=== PATIENT | female | born 1995 | race Caucasian/White ===

== ENCOUNTER 2017-09-12 09:29 | Emergency (ER) | payer OTHER ==
[2017-09-12 09:47] VITALS: BP 129/80; PULSE 90; TEMP 98.2; BMI 30.1
--- NOTE | 2017-09-12 10:35 | PDOC ---
History of Present Illness - General Chief Complaint: Pain, Acute Stated Complaint: BACK PAIN Time Seen by Provider: 09/12/17 09:51 - History of Present Illness Initial Comments: Alessia Acosta is an otherwise healthy 22yo, recent 6 weeks ago, who presents with right sided back and shooting leg pain since yesterday. She reports that last yesterday morning she began to have an aching pain on her right back, initially a 2/10. The pain worsened throughout the day until it was a 10/10, sharp pain that radiated down the right leg with movement. At rest it is a 3/10 but continues to be severe with any movement. Her pain is the worst when twisting, walking, or if she tries to straighten her back completely. It improves when she slouches, particularly if she leans over to the right side. Ms Acosta denies any numbness or tingling in her leg, urinary retention, bowel incontinence, focal weakness, or injury. She has not been doing any unusual lifting and did not notice that her symptoms started during or after any activity. She had similar episodes of shooting pain during her recent , but she says that the previous episodes were brief and resolved on there own. She presented for evaluation due to the duration of the current episode. Past History - Past Medical History Allergies/Adverse Reactions: Allergies Allergy/AdvReac Type Severity Reaction Status Date / Time pineapple Allergy Severe Bleeding Verified 07/29/17 07:18 gums No Known Drug Allergies Allergy Verified 07/29/17 07:18 Home Medications: Ambulatory Orders Ibuprofen [Motrin -] 600 mg PO QID PRN #28 tablet 08/01/17 Asthma: No Cancer: No Cardiac Disorders: No COPD: No Diabetes: No HTN: No Seizures: No Thyroid Disease: No - Suicide/Smoking/Psychosocial Hx Smoking History: Never smoked Have you smoked in the past 12 months: No Hx Alcohol Use: No Drug/Substance Use Hx: No Hx Substance Use Treatment: No Review of Systems - Review of Systems Comments:: General: No fevers, no chills, no weight or appetite change, no malaise HEENT: No changes in vision, no changes in hearing, no congestion, no sore throat CV: No chest pain, no palpitations, no LE edema Pulm: No SOB, no cough, no wheezing GI: No nausea or vomiting, no change in bowel habits, no melena : No frequency, no urgency, no dysuria Musc: No joint swelling, no recent injury. See HPI Skin: No rash, no lesions, no erythema Endo: No excessive thirst, no heat/cold intolerance Heme: No unusual bruising or bleeding, no swollen glands Neuro: No syncope, no numbness/tingling, no focal weakness Vasc: No claudication Psych: No recent change in mood, no SI or HI *Physical Exam - Vital Signs Last Vital Signs Temp Pulse Resp BP Pulse Ox 98.2 F 90 16 129/80 99 09/12/17 09:35 09/12/17 09:35 09/12/17 09:35 09/12/17 09:35 09/12/17 09:35 - Physical Exam Comments: General: Comfortable, no acute distress HEENT: PERRL, EOMI, MMM, voice normal, normal neck ROM, no LAD Cards: RRR, no murmur appreciated Pulm: Comfortable on room air, clear to auscultation bilaterally Abd/back: Soft, nontender, nondistended. Back and flanks nontender to palpation ; no spinal tenderness. Able to twist, flex, extend at waist. : No CVA tenderness Ext: Atraumatic. No LE edema. ROM intact. Able to move all extremities. Strength 5/5 and equal bilaterally Vasc: Extremities WWP. Palpable radial and pedal pulses bilaterally Neuro: A&Ox3, CN grossly intact, normal speech, motor/sensory grossly intact and symmetric Psych: Mood appropriate to situation Medical Decision Making - Medical Decision Making Alessia Acosta is a 22yo woman s/p recent (6 weeks ago) who presents with right sided positional back pain associated with shooting pain down her right leg. She denies any associated symptoms. - Consistent with musculosceletal pain, most likely sciatica, as symptoms occur or resolve with position and worsen with movement - No neurological symptoms suggesting any spinal cord compression or injury - No urinary symptoms or CVA tenderness suggesting UTI or kidney stone, but UA ordered in triage - currently pending - Recent , currently menstruating, no sudden onset of pain, abdominal pain or tenderness, or unusual menstrual cramping that would suggest gynecologic pathology. Urine ordered in triage, pending. 09/12/17 11:40 - UA without UTI. Some blood, but low concern for kidney stone given history and lack of CVA tenderness. - test negative - Discussed with Ms Acosta that this is most likely sciatica. Plan to discharge with ortho follow up. Ms Acosta agrees. Also discussed warning signs and reasons to return to the hospital. Discussed with Dr Lang. *DC/Admit/Observation/Transfer Diagnosis at time of Disposition: Sciatica Qualifiers: Laterality: right Qualified Code(s): M54.31 - Sciatica, right side - Discharge Dispostion Disposition: HOME Condition at time of disposition: Good - Referrals Referrals: Arnol Trinidad [Primary Care Provider] - Dax Hinkle MD [Staff Physician] - - Patient Instructions Printed Discharge Instructions: DI for Sciatica, DI for Back Pain With Sciatica - Post Discharge Activity
[2017-09-12 10:38] LABS: HCG,QUALITATIVE URINE NEGATIVE
[2017-09-12 10:41] LABS: URINE APPEARANCE CLEAR; URINE BILIRUBIN NEGATIVE (<2.0 mg/dL); URINE COLOR LTYELLOW; URINE GLUCOSE (UA) NEGATIVE (NEGATIVE); URINE KETONE NEGATIVE (NEGATIVE); URINE LEUK ESTERASE NEGATIVE (NEGATIVE); URINE NITRITE NEGATIVE (NEGATIVE); URINE UROBILINOGEN NEGATIVE mg/dL (0.2-1.0)
[2017-09-12 11:16] LABS: URINE PROTEIN 1+ (NEGATIVE)
--- NOTE | 2017-09-12 11:29 | PDOC ---
Attending Attestation - Resident Resident Name: Alicia Ward - ED Attending Attestation I have performed the following: I have examined & evaluated the patient, The case was reviewed & discussed with the resident, I agree w/resident's findings & plan, Exceptions are as noted - HPI HPI: 09/12/17 11:26 "The patient is a 22 year old female, with no significant PMH, who presents to the emergency department with 1 day of right sided back pain. The patient denies any recent injuries or trauma. The patient states that yesterday morning she experienced the right sided back ache which worsened throughout the afternoon, described as a constant sharp pain, worsened with twisting and bending. The patient states the right sided back pain radiates down the right leg. The patient states she experiencing similar symptoms while but the pain did not last for as long as today. The patient states she is currently on her period. The patient denies any recent numbness, tingling or loss of sensation. She denies any weakness or saddle anesthesia. She denies any bowel or bladder incontinence. The patient denies chest pain, shortness of breath, headache and dizziness. Denies fever, chills, nausea, vomit, diarrhea and constipation. Denies dysuria, frequency, urgency and hematuria. Allergies: NKDA Past surgical history: (6 weeks ago) " - Physicial Exam PE: 09/12/17 11:27 "GENERAL: Awake, alert, and fully oriented, in no acute distress. HEAD: No signs of trauma EYES: PERRLA, EOMI, sclera anicteric, conjunctiva clear ENT: Auricles normal inspection, hearing grossly normal, nares patent, oropharynx clear without exudates. Moist mucosa NECK: Nontender, no stepoffs, Normal ROM, supple, no lymphadenopathy, JVD, or masses LUNGS: Breath sounds equal, clear to auscultation bilaterally. No wheezes, and no crackles HEART: Regular rate and rhythm, normal S1 and S2, no murmurs, rubs or gallops ABDOMEN: Soft, nontender, normoactive bowel sounds. No guarding, no rebound. No masses EXTREMITIES: + straight leg test on R, Normal range of motion, no edema. No clubbing or cyanosis. No cords, erythema, or tenderness NEUROLOGICAL: Cranial nerves II through XII intact. 5/5 strength and sensation in all extremities, Normal speech, normal gait, normal cerebellar function SKIN: Warm, Dry, normal turgor, no rashes or lesions noted. " - Medical Decision Making 09/12/17 11:27 22 F with R lower back pain radiating to RLE. Likely sciatic nerve pain given + straight leg test. Pt with no neuro deficits to suggest cauda equina or cord compression. Pt's pain is not colicky, and pt has no CVA tenderness, making renal colic unlikely. Pt also has benign abdomen, making intraabdominal process unlikely. - UA, UPT 09/12/17 11:33 UA with + blood, but likely because pt is on her period. Pt's pain is not consistent with kidney stone, especially with no CVAT. Regardless, pt has no fevers, no dysuria, and no signs of infection, so management going forward will be the same - pain control and hydration. Pt given return precautions and understands she needs to come back if pain persists or if she begins to have fevers. Pt is well appearing, with normal vitals. Clinically stable for DC at this time. I discussed the physical exam findings, ancillary test results and final diagnoses with the patient. I answered all of the patient's questions. The patient was satisfied with the care received and felt comfortable with the discharge plan and treatment plan. The patient agrees to follow up with the primary care physician within 24-72 hours.
[2017-09-12] MEDS ORDERED: KETOROLAC TROMETHAMINE 30 MG/1 ML VIAL IM ONE (11:32)
[2017-09-12] MEDS ORDERED: KETOROLAC TROMETHAMINE 30 MG/1 ML VIAL ONE (11:34)
[2017-09-12 11:36] LABS: EPI CELLS RARE /HPF (FEW)
== END 2017-09-12 11:54 | disposition home or self-care (01) ==
LOC: JER 09:29
PROC: 3E0233Z Introduction of Anti-inflammatory into Muscle, Percutaneous Approach (ICD-10-PCS; principal; 2017-09-12)
DX: M54.41 Lumbago with sciatica, right side (principal)
CPT/HCPCS: 81003; 81015; 84703; 99283-25

== ENCOUNTER 2018-10-17 11:29 | Emergency (ER) | payer OTHER ==
[2018-10-17 11:42] VITALS: BP 139/87; PULSE 90; TEMP 97.9; BMI 31.8
[2018-10-17] MEDS ORDERED: KETOROLAC TROMETHAMINE 60 MG/2 ML VIAL IM ONE (12:15)
[2018-10-17] MEDS ORDERED: KETOROLAC TROMETHAMINE 60 MG/2 ML VIAL ONE (12:17)
--- NOTE | 2018-10-17 12:19 | PDOC ---
History of Present Illness - General Chief Complaint: Back Pain Stated Complaint: LOWER BACK PAIN Time Seen by Provider: 10/17/18 11:50 History Source: Patient Exam Limitations: No Limitations - History of Present Illness Initial Comments: 10/17/18 12:21 Status post epidural one year ago and has had intermittent back pain and spasm since that time. Patient states had an onset of low back pain roughly one week ago which has progressively worsened to where now she has sciatic distribution down her right leg. Denies fever, denies any bowel or bladder problems. Has been evaluated by her PMD who state that this is sometimes consequence of an epidural for childbirth. Has never received any medications or treatment for same. Occurred: reports: just prior to arrival, yesterday Severity: reports: moderate Pain Location: reports: back Method of Injury: Yes: unknown Past History - Travel Traveled outside of the country in the last 30 days: No Close contact w/someone who was outside of country & ill: No - Past Medical History Allergies/Adverse Reactions: Allergies Allergy/AdvReac Type Severity Reaction Status Date / Time pineapple Allergy Severe Bleeding Verified 10/17/18 11:37 gums No Known Drug Allergies Allergy Verified 10/17/18 11:37 Home Medications: Ambulatory Orders Ibuprofen [Motrin -] 600 mg PO QID PRN #28 tablet 08/01/17 Cyclobenzaprine HCl 10 mg PO Q8H PRN #14 tablet 10/17/18 Naproxen [Naprosyn -] 500 mg PO BID #30 tablet 10/17/18 Asthma: No Cancer: No Cardiac Disorders: No COPD: No Diabetes: No HTN: No Seizures: No Thyroid Disease: No - Immunization History Immunization Up to Date: Yes - Suicide/Smoking/Psychosocial Hx Smoking History: Never smoked Have you smoked in the past 12 months: No Information on smoking cessation initiated: No Hx Alcohol Use: No Drug/Substance Use Hx: No Hx Substance Use Treatment: No Review of Systems - Review of Systems Able to Perform ROS?: Yes Is the patient limited Japanese proficient: Yes Constitutional: Yes: Symptoms Reported, See HPI, Malaise. No: Fever Musculoskeletal: Yes: Symptoms Reported, See HPI, Back Pain Integumentary: Yes: See HPI. No: Symptoms Reported Neurological: Yes: Symptoms reported All Other Systems: Reviewed and Negative *Physical Exam - Vital Signs Last Vital Signs Temp Pulse Resp BP Pulse Ox 97.9 F 90 16 139/87 97 10/17/18 11:38 10/17/18 11:38 10/17/18 11:38 10/17/18 11:38 10/17/18 11:38 - Physical Exam General Appearance: Yes: Nourished, Appropriately Dressed, Apparent Distress HEENT: positive: EOMI, LANCE, Normal ENT Inspection, TMs Normal, Pharynx Normal Neck: positive: Supple. negative: Tender Respiratory/Chest: positive: Lungs Clear Gastrointestinal/Abdominal: positive: Soft Musculoskeletal: positive: Normal Inspection, Decreased Range of Motion, Muscle Spasm ([place] spasm noted at the paravertebral spinous muscles that radiates down the right side. Tender tight musculature primarily at waistline. Has no true bone tenderness, neurovascular intact to feet.) Extremity: positive: Normal Capillary Refill, Normal Inspection, Normal Range of Motion, Tender Integumentary: positive: Normal Color, Dry, Warm Neurologic: positive: snath handle assembler II-XII NML intact, Fully Oriented, Alert, Normal Mood/ Affect, Normal Response, Motor Strength 5/5 Progress Note - Progress Note Progress Note: X-ray and, we'll treat with NSAIDs and equal benzopyrenee *DC/Admit/Observation/Transfer Diagnosis at time of Disposition: Muscle spasm of back - Discharge Dispostion Disposition: HOME Condition at time of disposition: Stable Decision to Admit order: No - Prescriptions Prescriptions: Cyclobenzaprine HCl 10 mg PO Q8H PRN #14 tablet PRN Reason: spasm Naproxen [Naprosyn -] 500 mg PO BID #30 tablet - Referrals Referrals: Arnol Trinidad [Primary Care Provider] - - Patient Instructions Printed Discharge Instructions: DI for Back Strain or Sprain Additional Instructions: Rest, no heavy lifting or exercise until pain is resolved Hot soaks to neck and low back as often as possible/hot showers or Jacuzzis No massage or therapy until spasm is gone Continue Naprosyn 500 mg tablet every 12 hours for the next 3 days then as needed for pain and swelling Cyclobenzaprine 1-10mg tab every 8 hours as needed for spasm If not significant improvement within 24 hours with medication and rest regime, followup with private physician for change in medications and /or therapy. - Post Discharge Activity Forms/Work/School Notes: Back to Work
== END 2018-10-17 12:25 | disposition home or self-care (01) ==
LOC: JERFT 11:29
PROC: 3E0233Z Introduction of Anti-inflammatory into Muscle, Percutaneous Approach (ICD-10-PCS; principal; 2018-10-17)
DX: M62.830 Muscle spasm of back (principal)
CPT/HCPCS: 96372; 99282-25

== ENCOUNTER 2019-01-31 23:05 | Emergency (ER) | payer OTHER ==
[2019-01-31 23:11] VITALS: BP 136/93; PULSE 110; TEMP 98.2; BMI 29.2
--- NOTE | 2019-02-01 00:13 | PDOC ---
*Physical Exam - Vital Signs Last Vital Signs Temp Pulse Resp BP Pulse Ox 98.2 F 110 H 20 136/93 100 01/31/19 23:08 01/31/19 23:08 01/31/19 23:08 01/31/19 23:08 01/31/19 23:08 ED Treatment Course - LABORATORY CBC & Chemistry Diagram: 02/01/19 01:09 02/01/19 01:09 Medical Decision Making - Medical Decision Making 02/01/19 00:13 Ms. Schaefer is a 23-year-old female presenting to emergency department with a complaint of intermittent headaches. Patient states she was in her usual state of health. Noted headaches over the past 2 days. No associated fevers or chills. No nuchal rigidity, neck pain. No alterations in mental status. Patient's headaches are episodic, associated with dizziness, and nausea. Patient currently reports her headache is a 5/10, no nausea, no vomiting Heart is regular rate and rhythm Lungs are clear to auscultation bilateral No focal neurological deficits Pt seen by Midlevel Provider under my direct supervision Pt interviewed and examined Ancillary studies pending Will do: Labs CT head Reassess I agree with plan as outlined by Midlevel Provider 02/01/19 00:38 PT could not be found for re assessment Pt has eloped Per another patient in the ER, pt removed her IV Discharge - Discharge Information Problems reviewed: Yes Clinical Impression/Diagnosis: Eloped from emergency department Headache Qualifiers: Headache type: unspecified Headache chronicity pattern: acute headache Intractability: not intractable Qualified Code(s): R51 - Headache Condition: Stable Disposition: ELOPED - Follow up/Referral Referrals: Arnol Trinidad [Primary Care Provider] - - Patient Discharge Instructions - Post Discharge Activity
[2019-02-01] MEDS ORDERED: SODIUM CHLORIDE 1,000 ML IV STA (00:32)
[2019-02-01] MEDS ORDERED: METOCLOPRAMIDE HCL INJECTION 10 MG/2 ML VIAL IVPB ONE (00:32)
[2019-02-01] MEDS ORDERED: ACETAMINOPHEN 1000 MG/100 ML VIAL (NON FORMULARY) IVPB ONE (00:32)
--- NOTE | 2019-02-01 00:33 | PDOC ---
History of Present Illness - General Chief Complaint: Headache Stated Complaint: BLURRY VISION/VOMITING Time Seen by Provider: 01/31/19 23:36 History Source: Patient Exam Limitations: No Limitations Past History - Travel Traveled outside of the country in the last 30 days: No Close contact w/someone who was outside of country & ill: No - Past History Allergies/Adverse Reactions: Allergies pineapple Allergy (Severe, Verified 01/31/19 23:11) Bleeding gums No Known Drug Allergies Allergy (Verified 01/31/19 23:11) Home Medications: Ambulatory Orders Ibuprofen [Motrin -] 600 mg PO QID PRN #28 tablet 08/01/17 Cyclobenzaprine HCl 10 mg PO Q8H PRN #14 tablet 10/17/18 Naproxen [Naprosyn -] 500 mg PO BID #30 tablet 10/17/18 Immunization Status Up to Date: Yes - Social History Smoking Status: Never smoked Review of Systems - Review of Systems Able to Perform ROS?: Yes Comments:: 02/01/19 02:07 CONSTITUTIONAL: Absent: fever, chills, diaphoresis, generalized weakness, malaise, loss of appetite HEENT: Absent: rhinorrhea, nasal congestion, throat pain, throat swelling, difficulty swallowing, mouth swelling, ear pain, eye pain, visual Changes CARDIOVASCULAR: Absent: chest pain, loss of consciousness, palpitations, irregular heart rate, peripheral edema RESPIRATORY: Absent: cough, shortness of breath, dyspnea with exertion, orthopnea, wheezing, stridor, hemoptysis GASTROINTESTINAL: Absent: abdominal pain, abdominal distension, nausea, vomiting, diarrhea, constipation, melena, hematochezia GENITOURINARY: Absent: dysuria, frequency, urgency, hesitancy, hematuria, flank pain, genital pain MUSCULOSKELETAL: Absent: myalgia, arthralgia, joint swelling SKIN: Absent: rash, itching, pallor HEMATOLOGIC/IMMUNOLOGIC: Absent: easy bleeding, easy bruising, lymphadenopathy, frequent infections ENDOCRINE: Absent: unexplained weight gain, unexplained weight loss, heat intolerance, cold intolerance NEUROLOGIC: Present: Headache, dizziness absent: focal weakness or paresthesias, unsteady gait, seizure, mental status changes, bladder or bowel incontinence PSYCHIATRIC: Absent: anxiety, depression, suicidal or homicidal ideation, hallucinations. Is the patient limited Yakut proficient: No *Physical Exam - Vital Signs Last Vital Signs Temp Pulse Resp BP Pulse Ox 98.2 F 110 H 20 136/93 100 01/31/19 23:08 01/31/19 23:08 01/31/19 23:08 01/31/19 23:08 01/31/19 23:08 - Physical Exam 02/01/19 02:08 GENERAL: Well developed, well nourished. Awake and alert. No acute distress. HEENT: Normocephalic, atraumatic. PERRLA, EOMI. No conjunctival pallor. Sclera are non- icteric. Moist mucous membranes. Oropharynx is clear. NECK: Supple. Full ROM. No JVD. Carotid pulses 2+ and symmetric, without bruits. No thyromegaly. No lymphadenopathy. CARDIOVASCULAR: Regular rate and rhythm. No murmurs, rubs, or gallops. Distal pulses are 2+ and symmetric. PULMONARY: No evidence of respiratory distress. Lungs clear to auscultation bilaterally. No wheezing, rales or rhonchi. ABDOMINAL: Soft. Non-tender. Non-distended. No rebound or guarding. No organomegaly. Normoactive bowel sounds. MUSCULOSKELETAL Normal range of motion at all joints. No bony deformities or tenderness. No CVA tenderness. EXTREMITIES: No cyanosis. No clubbing. No edema. No calf tenderness. SKIN: Warm and dry. Normal capillary refill. No rashes. No jaundice. NEUROLOGICAL: Alert, awake, appropriate. Cranial nerves 2-12 intact. No deficits to light touch and temperature in face, upper extremities and lower extremities. No motor deficits in the in face, upper extremities and lower extremities. Normoreflexic in the upper and lower extremities. Normal speech. Toes are down- going bilaterally. Gait is normal without ataxia. PSYCHIATRIC: Cooperative. Good eye contact. Appropriate mood and affect. ED Treatment Course - LABORATORY CBC & Chemistry Diagram: 02/01/19 01:09 02/01/19 01:09 Medical Decision Making - Medical Decision Making 02/01/19 02:08 Patient is a 23-year-old female with no past medical history who presents the ER today with headache and dizziness for 2 days. She states that the pain comes and goes. She notes that she also feels dizzy and states that if she turns her head side to side the whole room spins. She states she been taking Motrin at home with some relief of her pain. She states she has never had a headache before. She states when the Motrin wears off her symptoms come back. She also admits to associated nausea, neck pain and low back pain. Denies fevers, chills, vomiting, lightheadedness, weakness, numbness and tingling to the extremities. A/P: Headache On exam patient is neurologically intact with no focal deficits. Dizziness is reproducible Labs, CT head ordered Reglan, IV Tylenol, Benadryl and fluids given for pain control. Diagnosis includes but is not limited to migraine versus BPPV/vertigo, tension headache. Unlikely subarachnoid given presentation of headache Signout given to Dr. Hebert, who also saw patient at bedside with myself. Pt pending head CT for dispo Discharge - Discharge Information Problems reviewed: Yes Clinical Impression/Diagnosis: Headache Qualifiers: Headache type: unspecified Headache chronicity pattern: acute headache Intractability: not intractable Qualified Code(s): R51 - Headache - Follow up/Referral Referrals: Arnol Trinidad [Primary Care Provider] - - Patient Discharge Instructions - Post Discharge Activity
[2019-02-01] MEDS ORDERED: METOCLOPRAMIDE HCL INJECTION 10 MG/2 ML VIAL ONE (00:50)
[2019-02-01] MEDS ORDERED: ACETAMINOPHEN INJECTION 100 ML IVPB ONE (00:50)
[2019-02-01 01:26] LABS: BASO % 0.3 % (0-2.0); EOS % 3.5 % (0-4.5); HEMATOCRIT 38.5 % (32.4-45.2); HEMOGLOBIN 12.4 GM/dL (10.7-15.3); MCH 24.7 pg (25.7-33.7); MCHC 32.4 g/dl (32.0-36.0); MEAN CELL VOLUME 76.4 fl (80-96); MEAN PLT VOLUME 9.7 fl (7.5-11.1); MONO % 8.9 % (3.8-10.2); NEUT % 58.3 % (42.8-82.8); PLATELET COUNT 284 K/MM3 (134-434); RBC 5.04 M/mm3 (3.60-5.2); RDW 14.6 % (11.6-15.6); WHITE BLOOD COUNT 11.6 K/mm3 (4.0-10.0)
[2019-02-01 01:54] LABS: ALBUMIN 3.5 g/dl (3.4-5.0); BILIRUBIN,TOTAL 0.4 mg/dL (0.2-1); BLOOD UREA NITROGEN 8.4 mg/dL (7-18); CALCIUM 8.6 mg/dL (8.5-10.1); CREATININE 0.7 mg/dL (0.55-1.3); POTASSIUM 4.1 mmol/L (3.5-5.1); TOT PROT 7.2 g/dl (6.4-8.2)
--- NOTE | 2019-02-01 02:34 | PDOC ---
*Physical Exam - Vital Signs Last Vital Signs Temp Pulse Resp BP Pulse Ox 98.2 F 110 H 20 136/93 100 01/31/19 23:08 01/31/19 23:08 01/31/19 23:08 01/31/19 23:08 01/31/19 23:08 ED Treatment Course - LABORATORY CBC & Chemistry Diagram: 02/01/19 01:09 02/01/19 01:09 - ADDITIONAL ORDERS Additional order review: Laboratory Results 02/01/19 02/01/19 01:09 01:09 Sodium 141 Potassium 4.1 Chloride 106 Carbon Dioxide 27 Anion Gap 9 BUN 8.4 Creatinine 0.7 Est GFR (CKD-EPI)AfAm 140.55 Est GFR (CKD-EPI)NonAf 121.27 Random Glucose 91 Calcium 8.6 Total Bilirubin 0.4 AST 56 H ALT 75 H Alkaline Phosphatase 84 Total Protein 7.2 Albumin 3.5 Serum , Qual Negative 02/01/19 01:09 RBC 5.04 MCV 76.4 L MCHC 32.4 RDW 14.6 D MPV 9.7 Neutrophils % 58.3 Lymphocytes % 29.0 D Monocytes % 8.9 Eosinophils % 3.5 Basophils % 0.3 - Medications Given in the ED: ED Medications Discontinued Medications Generic Name Dose Route Start Last Admin Trade Name Freq PRN Reason Stop Dose Admin Acetaminophen 1,000 mg 02/01/19 00:32 02/01/19 01:12 Ofirmev Injection - IVPB 02/01/19 00:33 1,000 mg ONCE ONE Administration Diphenhydramine HCl 12.5 mg 02/01/19 00:32 02/01/19 01:12 Benadryl Injection - IVPB 02/01/19 00:33 12.5 mg ONCE ONE Administration Sodium Chloride 1,000 mls @ 1,000 mls/hr 02/01/19 00:32 02/01/19 01:12 Normal Saline - IV 02/01/19 01:31 1,000 mls/hr ASDIR STA Administration Metoclopramide HCl 10 mg 02/01/19 00:32 02/01/19 01:12 Reglan Injection - IVPB 02/01/19 00:33 10 mg ONCE ONE Administration Medical Decision Making - Medical Decision Making 02/01/19 02:33 Pt received on sign out from AFTAB Dutta. 23F presenting with global headache. ED course includes reglan, benadryl, and tylenol with relief of symptoms. CT head pending. 02/01/19 04:45 Multiple efforts by physicians and staff to locate the patient. Patient appears to have eloped. Discharge - Discharge Information Problems reviewed: Yes Clinical Impression/Diagnosis: Headache Qualifiers: Headache type: unspecified Headache chronicity pattern: acute headache Intractability: not intractable Qualified Code(s): R51 - Headache Condition: Stable Disposition: ELOPED - Follow up/Referral Referrals: Arnol Trinidad [Primary Care Provider] - - Patient Discharge Instructions - Post Discharge Activity
== END 2019-02-01 04:34 | disposition left against medical advice (07) ==
LOC: JER 23:05
PROC: 3E033NZ Introduction of Analgesics, Hypnotics, Sedatives into Peripheral Vein, Percutaneous Approach (ICD-10-PCS; principal; 2019-01-31)
PROC: 3E033GC Introduction of Other Therapeutic Substance into Peripheral Vein, Percutaneous Approach (ICD-10-PCS; 2019-01-31)
PROC: 3E0337Z Introduction of Electrolytic and Water Balance Substance into Peripheral Vein, Percutaneous Approach (ICD-10-PCS; 2019-01-31)
DX: R51 Headache (principal)
CPT/HCPCS: 36415; 80053; 84703; 85025; 99282-25; J0131; J7030

== ENCOUNTER 2019-11-03 15:23 | Emergency (ER) | payer OTHER ==
--- NOTE | 2019-11-03 15:36 | PDOC ---
Rapid Medical Evaluation Time Seen by Provider: 11/03/19 15:29 Medical Evaluation: Allergies Allergy/AdvReac Type Severity Reaction Status Date / Time pineapple Allergy Severe Bleeding Verified 01/31/19 23:11 gums No Known Drug Allergies Allergy Verified 01/31/19 23:11 11/03/19 15:34 I have performed a brief in-person evaluation of this patient The patient presents with a chief complaint of: on and off vag bleed w/ cramps x 2 days. , ~ 6 weeks , had multiple + home preg text. No dysuria, n/v Pertinent physical exam findings:stable I have ordered the following:T&S, ua, beta, US The patient will proceed to the ED for further evaluation Discharge Disposition - Diagnosis First trimester bleeding - Referrals - Patient Instructions - Post Discharge Activity
[2019-11-03 15:47] VITALS: TEMP 98.3; BMI 30.1
[2019-11-03 17:02] LABS: BASO % 0.2 % (0-2.0); EOS % 2.8 % (0-4.5); HEMATOCRIT 38.2 % (32.4-45.2); HEMOGLOBIN 12.7 GM/dL (10.7-15.3); LYMPH % 28.8 % (8-40); MCH 26.7 pg (25.7-33.7); MCHC 33.2 g/dl (32.0-36.0); MEAN CELL VOLUME 80.4 fl (80-96); MEAN PLT VOLUME 9.8 fl (7.5-11.1); MONO % 11.2 % (3.8-10.2); PLATELET COUNT 265 K/MM3 (134-434); RBC 4.75 M/mm3 (3.60-5.2); RDW 15.1 % (11.6-15.6); WHITE BLOOD COUNT 8.1 K/mm3 (4.0-10.0)
[2019-11-03 17:08] LABS: EPI CELLS 10 /uL (0-25.1); HYALINE CASTS 1 /uL (0-3.1); URINE APPEARANCE CLEAR; URINE BACTERIA 153 /uL (0-1359); URINE BILIRUBIN NEGATIVE (NEGATIVE); URINE COLOR YELLOW; URINE GLUCOSE (UA) NEGATIVE (NEGATIVE); URINE KETONE NEGATIVE (NEGATIVE); URINE LEUK ESTERASE NEGATIVE (NEGATIVE); URINE NITRITE NEGATIVE (NEGATIVE); URINE PROTEIN 3+ (NEGATIVE); URINE RBC 52 /uL (0-23.9); URINE WBC 3 /uL (0-25.8)
--- NOTE | 2019-11-03 17:09 | PDOC ---
History of Present Illness - General Chief Complaint: Vaginal Bleeding Stated Complaint: 7 WEEK [place]/VAGINAL BLEEDING Time Seen by Provider: 11/03/19 15:29 History Source: Patient Exam Limitations: No Limitations - History of Present Illness Travel History: No Initial Comments: 11/03/19 17:03 24-year-old female G G2, P1 female presents to the ED with complaints of vaginal bleeding since Saturday. Patient states went to see Dr. Dorsey today and had a + urine but referred her to the ER since she is in need of additional blood work along with ultrasound which would not be covered by her insurance, [employer]. Patient denies abdominal pain presently but states on Saturday did have discomfort when bleeding began. Patient denies worsening vaginal bleeding, urinary complaints fever, chills or nausea. Patient denies passage of a large clot. LMP 09/30/2019 Timing/Duration: reports: changing over time Quality: reports: mild, cramping (Resolved) Abdominal Pain Onset Location: reports: suprapubic Pain Radiation: reports: no radiation Activities at Onset: reports: none Aggravating Factors: improves with: None Alleviating Factors: improves with: None Past History - Travel History Traveled outside of the country in the last 30 days: No Close contact w/someone who was outside of country & ill: No - Medical History Allergies/Adverse Reactions: Allergies Allergy/AdvReac Type Severity Reaction Status Date / Time pineapple Allergy Severe Bleeding Verified 11/03/19 15:44 gums No Known Drug Allergies Allergy Verified 11/03/19 15:44 Home Medications: Ambulatory Orders Ibuprofen [Motrin -] 600 mg PO QID PRN #28 tablet 08/01/17 Cyclobenzaprine HCl 10 mg PO Q8H PRN #14 tablet 10/17/18 Naproxen [Naprosyn -] 500 mg PO BID #30 tablet 10/17/18 Asthma: No Cancer: No Cardiac Disorders: No COPD: No Diabetes: No HTN: No Seizures: No Thyroid Disease: No - Reproductive History Is Patient Now?: Yes - Immunization History Immunization Up to Date: Yes - Psycho-Social/Smoking History Patient Lives Alone: No Lives with/in: spouse/SO Smoking History: Never smoked Have you smoked in the past 12 months: No Review of Systems - Review of Systems Able to Perform ROS?: Yes Constitutional: No: Symptoms Reported HEENTM: No: Symptoms Reported Respiratory: No: Symptoms reported Cardiac (ROS): No: Symptoms Reported ABD/GI: Yes: Abdominal cramping. No: Nausea, Vomiting : Yes: Discharge (Bright red blood) Musculoskeletal: No: Symptoms Reported Integumentary: No: Symptoms Reported Neurological: No: Symptoms reported Endocrine: No: Symptoms Reported Hematologic/Lymphatic: No: Symptoms Reported *Physical Exam - Vital Signs Last Vital Signs Temp Pulse Resp BP Pulse Ox 98.3 F 91 H 18 142/69 99 11/03/19 15:42 11/03/19 15:42 11/03/19 15:42 11/03/19 15:42 11/03/19 15:42 - Physical Exam General Appearance: Yes: Nourished, Appropriately Dressed. No: Apparent Distress HEENT: negative: Pale Conjunctivae Neck: positive: Supple Respiratory/Chest: positive: Lungs Clear, Normal Breath Sounds. negative: Respiratory Distress, Accessory Muscle Use Cardiovascular: positive: Regular Rhythm, Regular Rate. negative: Murmur Female Pelvic Exam: positive: cervical os closed, vaginal bleeding. negative: CMT, adnexal tenderness Gastrointestinal/Abdominal: positive: Soft. negative: Tenderness Musculoskeletal: negative: CVA Tenderness Extremity: positive: Normal Inspection Integumentary: positive: Normal Color, Warm, Moist Neurologic: positive: Motor Strength 5/5 (Ambulatory) ED Treatment Course - LABORATORY CBC & Chemistry Diagram: 11/03/19 16:21 11/03/19 16:21 Medical Decision Making - Medical Decision Making 11/03/19 17:08 Chief complaint: Vaginal bleeding with abdominal pain initially on Saturday. Patient went to woman to woman and referred here to the ER for further evaluation. Patient has not had an ultrasound yet for this . Exam: Patient with bright red blood in vault adnexal tenderness or large clots. No abdominal tenderness. Plan: Labs, urine and ultrasound ordered 11/03/19 17:52 Laboratory Tests 11/03/19 11/03/19 11/03/19 16:21 16:21 16:21 WBC 8.1 Hgb 12.7 Hct 38.2 Absolute Neuts (auto) 4.6 Monocytes % 11.2 H Sodium Potassium Chloride Carbon Dioxide Anion Gap Random Glucose Calcium Total Bilirubin AST ALT Beta HCG, Quant < 1.0 Urine Protein 3+ H Urine Blood Trace Urine Nitrite Negative Urine Bilirubin Negative Ur Leukocyte Esterase Negative Urine WBC (Auto) 3 Urine RBC (Auto) 52 Urine Bacteria (Auto) 153 11/03/19 16:21 WBC Hgb Hct Absolute Neuts (auto) Monocytes % Sodium 139 Potassium 4.4 Chloride 106 Carbon Dioxide 27 Anion Gap 6 L Random Glucose 87 Calcium 8.5 Total Bilirubin 0.3 AST 30 ALT 28 Beta HCG, Quant Urine Protein Urine Blood Urine Nitrite Urine Bilirubin Ur Leukocyte Esterase Urine WBC (Auto) Urine RBC (Auto) Urine Bacteria (Auto) 11/03/19 17:57 Ultrasound shows no IUP. Normal arterial and vascular flow noted on bilateral ovaries with no visible adnexal masses interpreted by chief underwriter will await for official radiologist reading but in the meanwhile discharge patient home based on beta less than 1 normal vital signs and lab work. Discharge - Discharge Information Problems reviewed: Yes Clinical Impression/Diagnosis: Vaginal bleeding Condition: Good Disposition: HOME - Follow up/Referral Referrals: Keyona Almendarez DO [Staff Physician] - - Patient Discharge Instructions Patient Printed Discharge Instructions: DI for Vaginal Bleeding Additional Instructions: At this time your ultrasound and blood work do not demonstrate a . May take Tylenol for discomfort. Follow-up with your [facility]. - Post Discharge Activity
[2019-11-03 17:38] LABS: ALBUMIN 3.6 g/dl (3.4-5.0); BILIRUBIN,TOTAL 0.3 mg/dL (0.2-1); CALCIUM 8.5 mg/dL (8.5-10.1); CREATININE 0.6 mg/dL (0.55-1.3); POTASSIUM 4.4 mmol/L (3.5-5.1); TOT PROT 7.4 g/dl (6.4-8.2)
[2019-11-03 18:08] VITALS: BP 134/71; PULSE 74
--- OUTSIDE RECORDS SUMMARY | 2019-11-03 18:38 | XMS ---
:1995 Author Organization [facility] Support Name Relationship Address Phone UE, UNEMPLOYED Unavailable Unavailable Unavailable UE Unavailable Unavailable Unavailable JHONATAN, RAED [address] [place] [address] JHONATAN, RAED Spouse [address] [place] [address] Re-disclosure Warning The records that you are about to access may contain information from federally- assisted alcohol or drug abuse programs. If such information is present, then the following federally mandated warning applies: This information has been disclosed to you from records protected by federal confidentiality rules (42 CFR part 2). The federal rules prohibit you from making any further disclosure of this information unless further disclosure is expressly permitted by the written consent of the person to whom it pertains or as otherwise permitted by 42 CFR part 2. A general authorization for the release of medical or other information is NOT sufficient for this purpose. The Federal rules restrict any use of the information to criminally investigate or prosecute any alcohol or drug abuse patient.The records that you are about to access may contain highly sensitive health information, the redisclosure of which is protected by Article 27-F of the [facility] Public Health law. If you continue you may haveaccess to information: Regarding HIV / AIDS; Provided by facilities licensed or operated by the [facility] Office of Mental Health; or Provided by the [facility] Office for People With Developmental Disabilities. If such information is present, then the following [facility] mandated warning applies: This information has been disclosed to you from confidential records which are protected by state law. State law prohibits you from making any further disclosure of this information without the specific written consent of the person to whom it pertains, or as otherwise permitted by law. Any unauthorized further disclosure in violation of state law may result in a fine or shelter sentence or both. A general authorization for the release of medical or other information is NOT sufficient authorization for further disclosure. Insurance Providers Payer name Policy type Policy ID Covered Covered green party's Policy P lauren / Coverage green party ID relationship to Lindsay [employer] ormation type lindsay [employer] [id number]
== END 2019-11-03 18:11 | disposition home or self-care (01) ==
LOC: JER 15:23
DX: O26.851 Spotting complicating pregnancy, first trimester (principal)
CPT/HCPCS: 36415; 76817-TC; 80053; 81003; 84702; 85025; 86850; 86870; 86880; 86900; 86901; 86902; 87077; 87086; 99284-25